=== PATIENT | female | born 2000 | race Caucasian/White ===

== ENCOUNTER 2023-06-14 15:09 | Emergency (ER) | payer MEDICAID ==
[~2023-06-14] VITALS: Ht 160 cm; Wt 85.8 kg
[2023-06-14 15:37] VITALS: BP 114/71; PULSE 70; RESP 18; TEMP 97.5; O2SAT 100
[2023-06-14] MEDS ORDERED: ACET-10509 PO (16:58)
== END 2023-06-14 16:52 | disposition home or self-care (01) ==
LOC: MED 15:09
DX: O99.511 Diseases of the respiratory system complicating pregnancy, first trimester (principal); R07.89 Other chest pain; Z3A.08 8 weeks gestation of pregnancy
CPT/HCPCS: 93005; 99283